=== PATIENT | female | born 1940 | race Caucasian/White ===

== ENCOUNTER → 2017-05-09 | Outpatient (REF) | payer BC ==
[2017-05-09 15:57] LABS: EOS # 0.2 K/mm3 (0.0-0.50); EOS % 3.9 % (0.0-3.0); LARGE UNSTAINED CELL # 0.1 K/mm3 (0.0-0.4); LARGE UNSTAINED CELL % 2.6 % (0.0-4.0); LYMPH # 1.7 K/mm3 (1.5-4.5); LYMPH % 30.5 % (24.0-44.0); MEAN CORPUSCULAR HEMOGLOBIN 31.5 pg (27.0-33.0); MEAN CORPUSCULAR HGB CONC 34.2 g/dl (32.0-36.5); MEAN CORPUSCULAR VOLUME 92.1 fl (80.0-96.0); MONO # 0.4 K/mm3 (0.0-0.8); MONO % 7.2 % (0.0-5.0); NEUTROPHILS % 54.8 % (36.0-66.0); PLATELET COUNT, AUTOMATED 306 k/mm3 (150-450); RED CELL DISTRIBUTION WIDTH 13.5 % (11.5-14.5); WHITE BLOOD COUNT 5.4 K/mm3 (4.0-10.0)
[2017-05-09 16:35] LABS: ERYTHROCYTE SEDIMENTATION RATE 15 mm/hr (0-30)
== END ==
LOC: M LABDRAW1 14:46
PROVIDERS: ATTEND Orthopaedic Surgery
DX: Z96.652 Presence of left artificial knee joint (principal)

== ENCOUNTER → 2017-05-17 | Outpatient (CLI) | payer BC, MEDICARE ==
--- NOTE | 2017-05-17 11:44 | REP ---
Three-phase bone scan of the knees: HISTORY: Left knee artificial joint. Left knee pain. No comparison imaging. TECHNIQUE: 21.4 mCi of technetium 99m MDP is injected and standard three-phase imaging is acquired. FINDINGS: Anterior and posterior flow study does show some mild hyperemia in and about the left knee. Blood pool imaging shows photopenia confirming that the patient has had bilateral knee arthroplasties. 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 There is bilateral bone arthroplasty interface uptake associated with the knee replacements. This is more prominent however on the left. On delayed scan images this finding is also seen again, asymmetric and increased on the left most pronounced posteriorly and medially in the proximal tibia on the left. Tibial plateau interface uptake is more prominent than distal femur uptake or patellar uptake. IMPRESSION: Asymmetric increased uptake associated with the left knee arthroplasty compared to the uptake associated with the right knee arthroplasty. I cannot exclude loosening. Signed by Mars Israel MD 05/17/2017 05:18 P
== END ==
LOC: M RAD 08:08
PROVIDERS: ATTEND Orthopaedic Surgery
DX: Z96.652 Presence of left artificial knee joint (principal)
CPT/HCPCS: 78315; A9503

== ENCOUNTER → 2019-03-28 | Outpatient (REF) | payer MEDICARE ==
[2019-03-28 12:43] LABS: BASO # 0.1 10^3/uL (0.0-0.2); BASO % 1.3 % (0.0-1.0); EOS # 0.1 10^3/uL (0.0-0.50); EOS % 2.3 % (0.0-3.0); HEMATOCRIT 39.9 % (36.0-47.0); LYMPH # 1.5 10^3/uL (1.5-4.5); LYMPH % 27.3 % (24.0-44.0); MEAN CORPUSCULAR HEMOGLOBIN 31.6 pg (27.0-33.0); MEAN CORPUSCULAR HGB CONC 32.6 g/dl (32.0-36.5); MEAN CORPUSCULAR VOLUME 96.8 fl (80.0-96.0); MONO # 0.5 10^3/uL (0.0-0.8); MONO % 9.3 % (0.0-5.0); NEUTROPHILS # 3.3 10^3/uL (1.8-7.7); NEUTROPHILS % 59.6 % (36.0-66.0); PLATELET COUNT, AUTOMATED 333 10^3/uL (150-450); RED BLOOD COUNT 4.12 10^6/uL (4.00-5.40); WHITE BLOOD COUNT 5.6 10^3/uL (4.0-10.0)
[2019-03-28 13:23] LABS: ERYTHROCYTE SEDIMENTATION RATE 24 mm/hr (0-30)
== END ==
LOC: M LABDRAW1 10:53
PROVIDERS: ATTEND Orthopaedic Surgery
DX: M25.561 Pain in right knee (principal)

== ENCOUNTER → 2019-05-30 | Outpatient (CLI) | payer MEDICARE ==
--- NOTE | 2019-05-30 11:32 | REP ---
THREE-PHASE BONE SCAN OF THE KNEES: HISTORY: Pain in the right knee. Question loosening. Comparison scintigraphy is from May 17, 2017. TECHNIQUE: 22.0 mCi of technetium 99m MDP is injected and standard three-phase imaging is acquired. SCINTIGRAPHIC FINDINGS: The patient is status post bilateral knee replacements. Anterior and posterior flow study shows mild hyperemia about the right knee. Blood pool images demonstrate mildly increased uptake about the right knee arthroplasty components compared to the left medially and laterally. There appear to be superficial vein varicosities about the left kidney medially. This finding is unchanged. Hyperemia was noted about the left knee on the prior bone scan. Delayed scan images today demonstrate asymmetric increased uptake at the bone/prosthesis interface of the proximal tibial prosthesis on the right compared to the left. Slightly increased uptake is seen associated with the femoral prosthesis compared to the left-sided femoral uptake. The uptake is somewhat asymmetric but not focal on either side. IMPRESSION: Somewhat asymmetric increased uptake associated with the right knee arthroplasty components, particularly the tibial component. The prior study showed asymmetric uptake on the left. I cannot exclude loosening on the right with today's study. Electronically Signed by Mars Israel MD 05/30/2019 12:48 P
== END ==
LOC: M RAD 07:44
PROVIDERS: ATTEND Orthopaedic Surgery
DX: M25.561 Pain in right knee (principal); Z96.651 Presence of right artificial knee joint
CPT/HCPCS: 78315; A9503

== ENCOUNTER → 2021-01-20 | Outpatient (CLI) | payer MEDICARE ==
[~2021-01-20] MED LIST: ISOVUE-300 61% 50ML VIAL As Ordered ONE; LIDOCAINE 1% MDV 20ML VIAL As Ordered ONE; TRIAMCINOLONE ACETONIDE SUSP 40 MG/ML VIAL (J3301) As Ordered ONE
--- NOTE | 2021-01-20 17:56 | REP ---
INDICATION: LT HIP OA W/ PAIN. COMPARISON: None TECHNIQUE: The procedure was performed by JHON Mohan, under the direct supervision of Dr. Silvestre. The benefits and risks of the procedure were explained to the patient, and an informed consent was obtained. Directly prior to the start of the procedure, a formal time-out was completed in the procedure room. The left femoral neck joint space was localized using fluoroscopic guidance. The skin was prepped and draped in a sterile fashion. No local anesthetic was used as per the patient's request. Using fluoroscopic guidance, a #22 gauge spinal needle was inserted and advanced into the left femoral neck joint space. Approximately 1 mL of Isovue 300 was injected to verify placement. Six mL of a solution containing 5 mL 1% lidocaine 10 mg/ml and 1 mL Kenalog 40 milligrams/milliliter was injected into the joint space. The needle was removed and hemostasis was achieved. FINDINGS: The patient tolerated the procedure well and there were no immediate complications. IMPRESSION: 1. Fluoroscopic guided intra-articular injection of the left hip. 0.2 minutes of fluoroscopy time was utilized for this procedure. Some fluoroscopic images are performed with last image hold technology. These images require no additional radiation. <Electronically signed by Brenda Grant > 01/20/21 [id number] <Electronically signed by Bryan Silvestre > 01/20/21 0032
== END ==
LOC: M RADPRO 10:35
PROVIDERS: ATTEND Orthopaedic Surgery
DX: M16.12 Unilateral primary osteoarthritis, left hip (principal)
CPT/HCPCS: 20610; 77002; J3301; Q9967

== ENCOUNTER → 2021-01-27 | Outpatient (CLI) | payer MEDICARE ==
--- NOTE | 2021-01-27 17:36 | REP ---
INDICATION: RT HIP OA W/ PAIN. COMPARISON: None. TECHNIQUE: The procedure was performed under the direct supervision of Dr. Israel. The benefits and risks including but not limited to pain infection and bleeding and anaphylaxis were explained to the patient and informed consent was obtained. The right femoral neck was localized using fluoroscopic guidance. The skin was prepped and draped in a sterile fashion. 1% lidocaine was used as a local anesthetic. Using fluoroscopic guidance, and last image hold technology, a 22-gauge spinal needle was inserted and advanced to the femoral neck. 0.5 ml of Isovue-300 was injected to verify placement. Six ml of a solution containing 5 ml of 1% Xylocaine and 1 mL of Kenalog 40 mg was injected. The needle was then removed. The patient tolerated the procedure well and there were no immediate complications. Less than 6 seconds of fluoro time was utilized for this procedure. FINDINGS: None IMPRESSION: Fluoro guidance for right hip injection. <Electronically signed by Will Londono > 01/27/21 1719 <Electronically signed by George Israel > 01/27/21 [id number]
== END ==
LOC: M RADPRO 10:16
PROVIDERS: ATTEND Orthopaedic Surgery
DX: M16.11 Unilateral primary osteoarthritis, right hip (principal)
CPT/HCPCS: 20610; 77002; J3301; Q9967